=== PATIENT | female | born 2005 | race African-American/Black ===

== ENCOUNTER 2024-09-03 05:58 | Emergency (ER) | payer SELFPAY ==
[~2024-09-03] VITALS: Ht 167.6 cm; Wt 85.1 kg
[2024-09-03 06:15] VITALS: TEMP 36.7; O2SAT 98
[2024-09-03 07:34] LABS: BASOPHILS % 0.2 % (0.0-2.0); EOSINOPHILS % 0.1 % (0.0-5.0); HEMOGLOBIN. 12.2 g/dL (12.0-16.0); LYMPHOCYTES % 9.8 % (20.0-50.0); MEAN CORPUSCULAR HEMOGLOBIN 28.9 pg (28.0-32.0); MEAN CORPUSCULAR HGB CONC 33.8 g/dL (31.0-37.0); MEAN CORPUSCULAR VOLUME 85.6 fL (81.0-99.0); MEAN PLATELET VOLUME 8.5 fl (7.4-10.4); MONOCYTES % 6.7 % (2.0-8.0); NEUTROPHILS % 83.2 % (40.0-76.0); PLATELET 326 x1000/uL (130-400)
[2024-09-03 07:43] LABS: CHLORIDE 104 mEq/L (98-107); POTASSIUM 3.8 mEq/L (3.5-5.1); SODIUM 135 mEq/L (136-145)
[2024-09-03 07:44] LABS: CALCIUM 8.9 mg/dL (8.7-10.4); CARBON DIOXIDE 24 mEq/L (21-32)
[2024-09-03 07:49] LABS: CREATININE 0.9 mg/dL (0.6-1.0); GLUCOSE 103 mg/dL (70-105); UREA NITROGEN BLOOD 11 mg/dL (9-23)
[2024-09-03 08:03] LABS: TROPONIN I HIGH SENSITIVITY < 4 ng/L (3.0-34)
[2024-09-03] MEDS: KETOROLAC 30MG/ML VIAL IM ONE (08:30)
[2024-09-03] MEDS: ONDANSETRON 4MG ODT PO ONE (08:30)
[2024-09-03 10:09] VITALS: BP 123/67; PULSE 90; RESP 18; O2SAT 99
[2024-09-03 10:09] LABS: CLARITY URINE CLEAR (CLEAR); COLOR URINE YELLOW (YELLOW); GLUCOSE URINE NEGATIVE (NEGATIVE); KETONES URINE NEGATIVE (NEGATIVE); LEUKOCYTE ESTERASE URINE NEGATIVE (NEGATIVE); NITRITE URINE NEGATIVE (NEGATIVE); OCCULT BLOOD URINE NEGATIVE (NEGATIVE); PH URINE 6.5 (4.5-8.0); PROTEIN URINE NEGATIVE (NEGATIVE); SPECIFIC GRAVITY URINE 1.002 (1.005-1.030); UROBILINOGEN URINE 0.2 E.U./dL (0.2-1.0)
== END 2024-09-03 10:10 | disposition home or self-care (01) ==
LOC: ER 05:58
DX: R51.9 Headache, unspecified (principal); I49.9 Cardiac arrhythmia, unspecified
CPT/HCPCS: 99284; 80048; 81003; 81025; 85025; 84484; 36415; 93005; 96372; J1885; Q0162